=== PATIENT | female | born 1950 | race African-American/Black ===

== ENCOUNTER 2018-01-24 14:43 | Emergency (ER) | payer OTHER ==
[~2018-01-24] VITALS: Ht 170.2 cm; Wt 73.5 kg
[~2018-01-24 14:43] MED LIST: AMBEREN; AMLODIPINE BESY10 MG; ATORVASTATIN CA20 MG PO; DIOVAN 80 MG TA80 M1 PO; DIOVAN320 MG PO; FLEXERIL PO; HYDROCHLOROTH12.5 MG; IBUPROFEN100 MG/52; NAPROSYN500 MG PO; NORCO 5-325 TA1 EACH PO
[2018-01-24] MEDS ORDERED: ASPIR 8181 MG PO (14:50)
[2018-01-24] MEDS ORDERED: AVALIDE 150-121 EACH PO (14:50)
[2018-01-24 15:12] LABS: ABSOLUTE EOSINOPHILS 0.1 thou/uL (0.0-0.7); ABSOLUTE LYMPHOCYTES 0.7 thou/uL (0.8-5.3); ABSOLUTE MONOCYTES 0.4 thou/uL (0.0-1.2); ABSOLUTE NEUTROPHILS 3.8 thou/uL (1.6-8.1); BASOPHILS 0.6 %; EOSINOPHILS 1.1 %; HEMATOCRIT 40.4 % (37.0-47.0); HEMOGLOBIN 13.4 gm/dL (12.0-15.0); LYMPHOCYTES 14.8 %; MCHC 33.1 g/dL (28.0-37.0); MCV 87.5 fL (80.0-100.0); MONOCYTES 7.5 %; MPV 8.3 fl. (7.2-11.1); NUCLEATED RBCS 0 /100WBC; PLATELET COUNT* 255 thou/uL (150-400); RBC 4.62 mil/uL (4.20-5.00); RDW-CV 14.8 % (10.5-14.5)
[2018-01-24 15:19] LABS: ANION GAP 5 mmol/L (7-16); BUN 18 mg/dL (7-18); CHLORIDE 101 mmol/L (98-107); CO2 31 mmol/L (21-32); CREATININE 1.1 mg/dL (0.6-1.3); GLUCOSE 112 mg/dL (70-99); POTASSIUM 3.7 mmol/L (3.5-5.1); SODIUM 137 mmol/L (136-145)
[2018-01-24 15:25] LABS: APTT 54.1 Seconds (25.0-31.3); PROTIME 10.7 Seconds (9.20-11.50)
[2018-01-24 15:43] LABS: ALBUMIN 4.2 g/dL (3.4-5.0); ALKALINE PHOSPHATASE 152 U/L (46-116); CK-MB MASS 2.6 ng/mL (<0.5-3.6); LIPASE 201 U/L (73-393); NT-PRO BRAIN NAT PEPTIDE 24 pg/mL (<300); SGOT 353 U/L (15-37); SGPT 387 U/L (30-65); TOTAL BILIRUBIN 1.6 mg/dL (<0.1-1.0); TOTAL PROTEIN 8.7 g/dL (6.4-8.2); TROPONIN-I LEVEL <0.06 ng/mL (<0.06)
[2018-01-24 17:14] VITALS: BP 137/85
--- NOTE | 2018-01-25 10:59 | EKG ---
[place] [address] ELECTROCARDIOGRAM REPORT Name: ETELVINAMOUNA BHATTI 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1950 Requested By: Alfredo Soto Order Number: [id number] MD: Clarke Velarde Measurements Intervals [place] Rate: 75 P: 39 AK: 142 QRS: 10 QRSD: 87 T: -15 QT: 423 QTc: 473 Interpretive Statements Sinus rhythm Nonspecific T abnormalities, diffuse leads Compared to ECG 01/24/2015 01:34:09 Sinus bradycardia no longer present T-wave abnormality still present Electronically Signed On 01-25-2018 10:59:25 CDT by Clarke Velarde [email or web address] <ELECTRONICALLY SIGNED> By: Nora Velarde MD, [facility] 01/25/18 1059 1451 1451 Nora Velarde MD, [facility] /EPI
--- NOTE | 2018-01-25 11:00 | EKG ---
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 : 1950 Requested By: Alfredo Soto Order Number: [id number] MD: Clarke Velarde Measurements Intervals [place] Rate: 68 P: 51 NM: 152 QRS: 21 QRSD: 89 T: -3 QT: 417 QTc: 444 Interpretive Statements Sinus rhythm Borderline T abnormalities, inferior leads Compared to ECG 01/24/2015 01:34:09 Sinus bradycardia no longer present T-wave abnormality still present Electronically Signed On 01-25-2018 11:00:01 CDT by Clarke Velarde [email or web address] <ELECTRONICALLY SIGNED> By: Nora Velarde MD, [facility] 01/25/18 1100 1631 1631 F. Clarke Velarde MD, [facility] /EPI
== END 2018-01-24 17:15 | disposition home or self-care (01) ==
LOC: M.ERS 14:43
PROVIDERS: Family Medicine
DX: R07.89 Other chest pain (principal); R94.5 Abnormal results of liver function studies; I10 Essential (primary) hypertension; Z90.49 Acquired absence of other specified parts of digestive tract; Z90.710 Acquired absence of both cervix and uterus; Z88.2 Allergy status to sulfonamides

== ENCOUNTER 2019-04-17 18:28 | Emergency (ER) | payer OTHER ==
[~2019-04-17] VITALS: Ht 157.5 cm; Wt 71.2 kg
[~2019-04-17 18:28] MED LIST changes: +ASPIR 8181 MG PO; +AVALIDE 150-121 EACH PO
[2019-04-17 19:24] LABS: ABSOLUTE EOSINOPHILS 0.1 thou/uL (0.0-0.7); ABSOLUTE LYMPHOCYTES 1.5 thou/uL (0.8-5.3); ABSOLUTE MONOCYTES 0.4 thou/uL (0.0-1.2); ABSOLUTE NEUTROPHILS 1.8 thou/uL (1.6-8.1); BASOPHILS 0.7 %; EOSINOPHILS 2.6 %; HEMATOCRIT 38.4 % (37.0-47.0); HEMOGLOBIN 13.2 gm/dL (12.0-15.0); LYMPHOCYTES 39.6 %; MCH 29.6 pg (26.0-34.0); MCHC 34.3 g/dL (28.0-37.0); MCV 86.2 fL (80.0-100.0); MONOCYTES 9.5 %; MPV 8.2 fl. (7.2-11.1); NUCLEATED RBCS 0 /100WBC; PLATELET COUNT* 244 thou/uL (150-400); POLYS 47.6 %; RBC 4.45 mil/uL (4.20-5.00); RDW-CV 14.7 % (10.5-14.5); WBC 3.8 thou/uL (4.0-11.0)
[2019-04-17 19:32] LABS: CALCIUM 8.6 mg/dL (8.5-10.1); CREATININE 1.1 mg/dL (0.6-1.3); POTASSIUM 3.9 mmol/L (3.5-5.1)
[2019-04-17 19:36] LABS: URINE BILIRUBIN NEGATIVE (Negative); URINE BLOOD NEGATIVE (Negative); URINE CLARITY CLEAR; URINE COLOR STRAW; URINE GLUCOSE-RANDOM NEGATIVE (Negative); URINE KETONES NEGATIVE (Negative); URINE LEUKOCYTES-REFLEX NEGATIVE (Negative); URINE NITRITE-REFLEX NEGATIVE (Negative); URINE PROTEIN NEGATIVE (Negative); URINE UROBILINOGEN 0.2 E.U./dl (0.2-1.0)
[2019-04-17 19:37] LABS: TOTAL BILIRUBIN 0.5 mg/dL (<0.1-1.0); TOTAL PROTEIN 7.8 g/dL (6.4-8.2)
[2019-04-17 19:54] VITALS: BP 166/93
--- NOTE | 2019-04-18 10:38 | EKG ---
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1950 Requested By: Cameron Claire Order Number: [id number] MD: Malcolm Thomas Measurements Intervals [place] Rate: 65 P: 43 SC: 140 QRS: 27 QRSD: 91 T: 5 QT: 381 QTc: 397 Interpretive Statements Sinus arrhythmia nonspecific t wave changes pvc with paced ventricular beat Compared to ECG 01/24/2018 16:31:16 ventricular paced beat noted Electronically Signed On 04-18-2019 10:38:25 [employer] by Malcolm Thomas [email or web address] <ELECTRONICALLY SIGNED> By: Malcolm Thomas MD, [facility] 04/18/19 [facility] 09 09 Malcolm Thomas MD, [facility] /EPI
== END 2019-04-17 19:55 | disposition home or self-care (01) ==
LOC: M.ERS 18:28
PROVIDERS: Emergency Medicine
DX: M54.5 Low back pain (principal); R10.31 Right lower quadrant pain; I10 Essential (primary) hypertension; Z90.49 Acquired absence of other specified parts of digestive tract; Z90.710 Acquired absence of both cervix and uterus; Z88.2 Allergy status to sulfonamides; Z79.82 Long term (current) use of aspirin